=== PATIENT | male | born 1945 | race Caucasian/White ===

== ENCOUNTER → 2020-02-17 09:12 | Outpatient (CLI) | payer MEDICARE, BC ==
[2015-07-17 12:13] VITALS: BMI 38.0
[~2020-02-17 09:12] MED LIST: ALDACTONE25 MG PO; AMBIEN10 MG PO; BENICAR40 MG PO; CARDURA2 MG PO; COLACE100 MG PO; FLOMAX0.4 MG PO; GLUCOPHAGE500 MG PO; KLOR-CON M2020 MEQ PO; MIDAMOR5 MG; MIDAMOR5 MG PO; MIRALAX17 GM PO; NORCO 10/325 TA1 TA1 PO; NORVASC2.5 MG PO; PACERONE200 MG PO; PLAVIX75 MG PO; SINGULAIR10 MG PO; TOPROL XL50 MG PO; VICTOZA0.6 MG/0.1 SQ; XARELTO20 MG PO; ZOCOR20 MG PO
[2020-02-17 11:53] LABS: BASOPHILS 0.7 % (0-2); EOSINOPHILS 3.1 % (0-7); HEMATOCRIT 42.2 % (42.0-54.0); HEMOGLOBIN 13.8 g/dL (13.5-17.5); LYMPHOCYTES 32.2 % (15-50); MCH 30.7 pg (26.0-34.0); MCHC 32.7 g/dL (31.0-37.0); MCV 93.8 fL (80.0-100.0); MEAN PLATELET VOLUME 11.7 fL (7.4-10.4); MONOCYTES 11.3 % (2-11); NEUTROPHILS 52.7 % (40-80); PLATELET COUNT 146 10x3/uL (130-400); RDW 13.3 % (11.5-14.5); WBC 4.5 10x3/uL (4.8-10.8)
[2020-02-17 11:56] LABS: INR 1.59 (0.85-1.17); PROTIME 18.8 SECONDS (11.6-15.0)
[2020-02-17 12:03] LABS: ALBUMIN 3.7 g/dL (3.4-5.0); ANION GAP 9.9 mmol/L (8-16); BILIRUBIN - TOTAL 1.15 mg/dL (0.2-1.3); CALCIUM 8.4 mg/dL (8.5-10.1); CARBON DIOXIDE 27.7 mmol/L (21.0-32.0); CREATININE - SERUM 1.1 mg/dL (0.6-1.3); POTASSIUM - SERUM 3.6 mmol/L (3.5-5.1); PROTEIN - SERUM 6.6 g/dL (6.4-8.2)
== END | disposition home or self-care (01) ==
LOC: D.LABREF 09:12 → D.LAB 09:12
PROVIDERS: ATTEND Internal Medicine Cardiovascular Disease
DX: Z00.00 Encounter for general adult medical examination without abnormal findings (principal)

== ENCOUNTER → 2020-03-26 08:15 | Outpatient (CLI) | payer MEDICARE, BC ==
[2015-07-17 12:13] VITALS: BMI 38.0
== END | disposition home or self-care (01) ==
LOC: D.LABREF 08:15
PROVIDERS: ATTEND Internal Medicine Interventional Cardiology
DX: I47.2 Ventricular tachycardia (principal); I50.9 Heart failure, unspecified; Z95.818 Presence of other cardiac implants and grafts